=== PATIENT | male | born 1960 | race African-American/Black ===

== ENCOUNTER → 2017-10-23 | Outpatient (CLI) | payer BC ==
[~2017-10-23] MED LIST: DOBUTamine DRIP for NUC MED 500 MG in DEXTROSE/WATER 1 250ML.BAG IV ONE
--- NOTE | 2017-10-23 12:24 | ECHOS ---
STRESS ECHOCARDIOGRAM DOBUTAMINE STRESS ECHOCARDIOGRAM DATE OF SERVICE: 10/23/2017 INDICATION OF THE STUDY: Chest pain. MEDICATIONS: BASELINE HEART RATE: 68 BASELINE BLOOD PRESSURE: 133/88 MAXIMUM HEART RATE: 140 MAXIMUM BLOOD PRESSURE: 206/89 85% MPHR: 139 100% MPHR: 163 METS: MAXIMUM STAGE REACHED: TOTAL EXERCISE TIME: CLINICAL INFORMATION: STRESS DATA: Pretesting physical examination showed a heart rate of 68, pressure is 133/88 mmHg. Baseline EKG showed sinus mechanism. Dobutamine infusion at a dose of 10 mcg/kg per minute was initiated and increased to 30 mcg/kg per minute per protocol. Max heart rate was 140 beats per minute, which is about 85% of maximum predicted heart rate. Maximum blood pressure 206/89 mmHg. Clinically the patient did not have any symptoms of chest pain or chest discomfort. The EKG itself did not show any significant ST or T-wave abnormalities consistent with ischemia. ECHOCARDIOGRAM IMAGES: On echocardiogram images from parasternal long axis view, parasternal short axis view, apical 4 chamber and apical 2 chamber view were obtained as the baseline images, at low dose dobutamine infusion, at the peak of the heart rate as well as on recovery. On reviewing the echocardiogram images, did not show any evidence of obvious wall motion abnormalities consistent with ischemia. CONCLUSION: 1. Normal EKG in response to dobutamine. 2. Normal echocardiogram in response to dobutamine. MMODL / IJN: [id number] /
== END | disposition home or self-care (01) ==
LOC: RADNMMAIN 10:06
PROVIDERS: ATTEND Internal Medicine
DX: I10 Essential (primary) hypertension (principal); R07.9 Chest pain, unspecified
CPT/HCPCS: 93351; J1250

== ENCOUNTER → 2018-11-06 | Outpatient (CLI) | payer BC ==
[2018-11-06 13:46] LABS: Basophils % (A) 1 %; Eosinophils # (A) 0.1 k/uL (0-0.7); Eosinophils % (A) 2 %; HCT 46.1 % (39.0-53.0); HGB 14.9 gm/dL (13.0-17.5); Lymphocytes # (A) 1.8 k/uL (1.0-4.8); Lymphocytes % (A) 27 %; MCHC 32.3 g/dL (31.0-37.0); MCV 89.8 fL (80.0-100.0); Mean Platelet Volume 7.1; Monocytes # (A) 0.4 k/uL (0-1.0); Monocytes % (A) 6 %; Neutrophils % (A) 62 %; Platelet Count 309 k/uL (150-450); RBC 5.13 m/uL (4.30-5.90); RDW 14.1 % (11.5-15.5); WBC 6.5 k/uL (3.8-10.6)
[2018-11-06 14:45] LABS: Erythrocyte Sedimentation Rate 7 mm/hr (0-15)
[2018-11-06 15:01] LABS: Appearance,BF Cloudy; Color,BF Yellow; Nucleated Cells, Body Fluid 580 /uL; RBC, Body Fluid 780 /uL
[2018-11-06 15:04] LABS: Mononuclear WBC,Body Fluid 44 %; Polynuclear WBC,Body Fluid 56 %; Total Cells Counted,Body Fluid 100
== END | disposition home or self-care (01) ==
LOC: LABWHC1 12:19 → EDSTATUS 12:36
PROVIDERS: ATTEND Nurse Practitioner
DX: M25.561 Pain in right knee (principal); M25.461 Effusion, right knee; I10 Essential (primary) hypertension; Z85.46 Personal history of malignant neoplasm of prostate; Z96.651 Presence of right artificial knee joint
CPT/HCPCS: 36415; 85025; 85652; 87070; 87075; 87205; 89050; 89060

== ENCOUNTER → 2018-12-25 | Outpatient (CLI) | payer BC ==
--- NOTE | 2018-12-26 07:24 | NM ---
EXAMINATION TYPE: NM bone/joint limited DATE OF EXAM: 12/25/2018 COMPARISON: NONE HISTORY: Right knee pain TECHNIQUE: After the intravenous administration of 25.5 mCi Tc 99m MDP. Images acquired 6 hours pos t injection. Multiple views of the bilateral knees are submitted. 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 Comp arison to the prior exam of 12/20/2014 there is increased focal uptake of the right tibial plateau and medial femoral condyle, however the condylar uptake is similar to the contralateral left side. Remai nder of the uptake is symmetric, likely degenerative. IMPRESSION: Asymmetric uptake of the right tibial plateau, although overall mild, this may correlate with septic or aseptic loosening. Correlate with radiographs and clinical findings.
== END | disposition home or self-care (01) ==
LOC: RADNMMAIN 10:13
PROVIDERS: ATTEND Orthopaedic Surgery
DX: R93.7 Abnormal findings on diagnostic imaging of other parts of musculoskeletal system (principal); M25.561 Pain in right knee; M25.461 Effusion, right knee; Z96.651 Presence of right artificial knee joint
CPT/HCPCS: 78300; A9503

== ENCOUNTER → 2019-03-12 | Outpatient (CLI) | payer BC ==
--- NOTE | 2019-03-12 14:46 | XR ---
EXAMINATION TYPE: XR chest 2V DATE OF EXAM: 03/12/2019 COMPARISON: 04/17/2016 HISTORY: J 18.9. Shortness of breath. TECHNIQUE: Frontal and lateral views of the chest are obtained. FINDINGS: Chronic right minimal linear right basilar atelectasis. Cardiomediastinal silhouette is pa rtially obscured but similar to the prior. No sizable pneumothorax. Hemidiaphragm elevation is seen. Blunting of the costophrenic angles on the frontal view does not persist on the lateral view and appe ars to relate to partial obscuration by copious overlying soft tissues. Minimal degenerative changes of the spine. IMPRESSION: Chronic right hemidiaphragm elevation and mild subsegmental right basilar atelectasis.
== END | disposition home or self-care (01) ==
LOC: RADXRMAIN 11:06
PROVIDERS: ATTEND Internal Medicine
DX: J98.11 Atelectasis (principal); J98.4 Other disorders of lung
CPT/HCPCS: 71046

== ENCOUNTER 2019-04-24 10:12 | Day surgery (SDC) | payer BC ==
[2019-04-22 11:58] VITALS: BMI 31.6
[~2019-04-24 10:12] MED LIST changes: +DEXAMETHASONE SOD PHOSPHATE 10 MG/ML 1 ML VIAL IV ONE; -DOBUTamine DRIP for NUC MED 500 MG in DEXTROSE/WATER 1 250ML.BAG IV ONE; +LACTATED RINGERS 1,000 ML IV SCH; +ONDANSETRON 4 MG/2 ML VIAL IVP ONE
[2019-04-24] MEDS ORDERED: LIDOCAINE 1% 20 ML VIAL (10MG/ML) FOR IV START INTRADERMA ONE (11:07)
[2019-04-24 11:09] VITALS: TEMP 98.7
[2019-04-24] MEDS ORDERED: PROPOFOL 10 MG/ML 20 ML VIAL IV ONE (11:27)
--- NOTE | 2019-04-24 11:41 | P.PCN ---
Date of Procedure: 04/24/19 Procedure(s) Performed: BRIEF HISTORY: Patient is a 58-year-old pleasant male scheduled for an elective colonoscopy as a part of screening for colorectal neoplasia. PROCEDURE PERFORMED: Colonoscopy. PREOPERATIVE DIAGNOSIS: Screening for colon cancer. IV sedation per Anesthesia. PROCEDURE: After informed consent was obtained, the patient, was brought into the endoscopy unit. IV sedation was administered by Anesthesia under continuous monitoring. Digital rectal examination was normal. Initially the Olympus CF-160 flexible video colonoscope was then inserted in the rectum, gradually advanced into the cecum without any difficulty. Careful examination was performed as the scope was gradually being withdrawn. Ileocecal valve and the appendiceal orifice were visualized and appeared normal. Prep was excellent. Mucosa of the cecum, ascending colon, transverse colon, descending colon, sigmoid colon, and rectum appeared normal. Retroflexion was performed in the rectum and no lesions were seen. The patient tolerated the procedure well. IMPRESSION: Normal-appearing colon from rectum to cecum with no evidence of colorectal neoplasia . RECOMMENDATIONS: Findings of this examination were discussed with the patient as well as his family. He was advised to have a repeat screening colonoscopy in 10 years.
[2019-04-24 11:53] VITALS: BP 112/70
[2019-04-24 12:04] VITALS: PULSE 71; RESP 16
== END 2019-04-24 12:27 | disposition home or self-care (01) ==
LOC: ORWHC2ENDO 10:12
PROVIDERS: ATTEND Internal Medicine Gastroenterology
DX: Z12.11 Encounter for screening for malignant neoplasm of colon (principal); Z79.899 Other long term (current) drug therapy; I10 Essential (primary) hypertension; K21.9 Gastro-esophageal reflux disease without esophagitis; Z85.46 Personal history of malignant neoplasm of prostate; Z79.891 Long term (current) use of opiate analgesic
CPT/HCPCS: J2704; G0121

== ENCOUNTER → 2020-04-21 | Outpatient (CLI) | payer BC ==
[2020-04-21 10:40] LABS: HGB 14.1 gm/dL (13.0-17.5); MCH 29.8 pg (25.0-35.0); MCHC 32.9 g/dL (31.0-37.0); MCV 90.5 fL (80.0-100.0); Mean Platelet Volume 6.8; Platelet Count 256 k/uL (150-450); RBC 4.75 m/uL (4.30-5.90); RDW 14.2 % (11.5-15.5); WBC 4.3 k/uL (3.8-10.6)
[2020-04-21 10:43] LABS: Appearance,Urine Clear (Clear); Bilirubin,Urine Negative (Negative); Blood,Urine Negative (Negative); Color,Urine Yellow; Glucose,Urine (UA) Negative (Negative); Ketones,Urine Negative (Negative); Leukocyte Esterase,Urine Negative (Negative); Nitrite,Urine Negative (Negative); PH, Urine 5.5 (5.0-8.0); Protein,Urine Negative (Negative); Specific Gravity,Urine 1.017 (1.001-1.035); Urobilinogen,Urine <2.0 mg/dL (<2.0)
[2020-04-21 10:55] LABS: ALT 39 U/L (4-49); AST 36 U/L (17-59); African American GFR (CKD) >90 (>60 ml/min/1.73 sqM); Albumin 4.3 g/dL (3.5-5.0); Alkaline Phosphatase 48 U/L (38-126); Anion Gap 6 mmol/L; Blood Urea Nitrogen 13 mg/dL (9-20); Calcium 9.4 mg/dL (8.4-10.2); Carbon Dioxide 28 mmol/L (22-30); Chloride 104 mmol/L (98-107); Glucose 109 mg/dL (74-99); Non-African American GFR(CKD) 84 (>60 ml/min/1.73 sqM); Potassium 3.9 mmol/L (3.5-5.1); Sodium 138 mmol/L (137-145); Total Bilirubin 0.4 mg/dL (0.2-1.3); Total Protein 7.3 g/dL (6.3-8.2)
[2020-04-21 11:32] LABS: Partial Thromboplastin Time 27.2 sec (22.0-30.0); Prothrombin Time 10.3 sec (9.0-12.0)
== END | disposition home or self-care (01) ==
LOC: LABPAT 09:34
PROVIDERS: ATTEND Orthopaedic Surgery
DX: Z01.818 Encounter for other preprocedural examination (principal); Z01.812 Encounter for preprocedural laboratory examination
CPT/HCPCS: 36415; 80053; 81003; 85027; 85610; 85730; 87070

== ENCOUNTER → 2020-08-05 | Outpatient (CLI) | payer BC ==
[2020-08-05 14:50] LABS: HGB 14.6 gm/dL (13.0-17.5); MCH 30.7 pg (25.0-35.0); MCV 90.2 fL (80.0-100.0); Mean Platelet Volume 6.8; Platelet Count 217 k/uL (150-450); RBC 4.77 m/uL (4.30-5.90); RDW 13.6 % (11.5-15.5); WBC 4.9 k/uL (3.8-10.6)
[2020-08-05 14:55] LABS: INR 0.9 (<1.2); Partial Thromboplastin Time 25.6 sec (22.0-30.0); Prothrombin Time 10.1 sec (9.0-12.0)
[2020-08-05 15:01] LABS: ALT 24 U/L (4-49); AST 33 U/L (17-59); African American GFR (CKD) >90 (>60 ml/min/1.73 sqM); Albumin 4.5 g/dL (3.5-5.0); Alkaline Phosphatase 55 U/L (38-126); Anion Gap 10 mmol/L; Blood Urea Nitrogen 15 mg/dL (9-20); Calcium 9.7 mg/dL (8.4-10.2); Carbon Dioxide 30 mmol/L (22-30); Chloride 100 mmol/L (98-107); Glucose 106 mg/dL (74-99); Non-African American GFR(CKD) 82 (>60 ml/min/1.73 sqM); Potassium 3.5 mmol/L (3.5-5.1); Sodium 140 mmol/L (137-145); Total Bilirubin 0.5 mg/dL (0.2-1.3); Total Protein 7.6 g/dL (6.3-8.2)
[2020-08-05 15:09] LABS: Appearance,Urine Clear (Clear); Bilirubin,Urine Negative (Negative); Blood,Urine Trace (Negative); Color,Urine Light Yellow; Glucose,Urine (UA) Negative (Negative); Ketones,Urine Negative (Negative); Leukocyte Esterase,Urine Negative (Negative); Mucus,Urine Rare /hpf; Nitrite,Urine Negative (Negative); Protein,Urine Negative (Negative); RBC,Urine 2 /hpf (0-5); Specific Gravity,Urine 1.015 (1.001-1.035); Urobilinogen,Urine <2.0 mg/dL (<2.0); WBC,Urine 1 /hpf (0-5)
== END | disposition home or self-care (01) ==
LOC: LABPAT 14:01
PROVIDERS: ATTEND Orthopaedic Surgery
DX: Z01.812 Encounter for preprocedural laboratory examination (principal); M17.11 Unilateral primary osteoarthritis, right knee
CPT/HCPCS: 80053; 81001; 85027; 85610; 85730; 87070

== ENCOUNTER 2020-08-16 07:17 | Inpatient (IN) | payer BC ==
[2020-08-09 15:03] VITALS: BMI 31.1
[~2020-08-16 07:17] MED LIST changes: +ACETAMINOPHEN TAB 500 MG TAB PO PRN; -DEXAMETHASONE SOD PHOSPHATE 10 MG/ML 1 ML VIAL IV ONE; +DEXAMETHASONE SOD PHOSPHATE 4 MG/ML 1 ML VIAL IV ONE; +GABAPENTIN 300 MG CAP PO PRN; +HYDROmorphone 0.5 MG/0.5 ML SYRINGE IVP PRN; -LACTATED RINGERS 1,000 ML IV SCH; +MELOXICAM 7.5 MG TAB PO PRN; +MIDAZOLAM 2 MG/2 ML VIAL IV PRN; +ROPIVACAINE/EPI/CLONIDINE/KET 50 ML SYRINGE MISCELLANE PRN; +SCOPOLAMINE 1.5MG/72HR PATCH TRANSDERM ONE; +TRANEXAMIC ACID 1,000 MG in SODIUM CHLORIDE 0.9% 100 ML IVPB PRN
[2020-08-16] MEDS ORDERED: MIDAZOLAM 2 MG/2 ML VIAL IV ONE (08:44)
[2020-08-16] MEDS ORDERED: fentaNYL (PF) 50 MCG/ML 2 ML AMP IV ONE (08:44)
[2020-08-16] MEDS: LACTATED RINGERS 1,000 ML IV SCH ×2 (09:10→13:10)
[2020-08-16] MEDS ORDERED: KETAMINE 10 MG/ML 20 ML VIAL ONE (09:12)
[2020-08-16] MEDS ORDERED: TRANEXAMIC ACID 1,000 MG/10 ML VIAL ONE (09:12)
[2020-08-16] MEDS ORDERED: MIDAZOLAM 2 MG/2 ML VIAL ONE (09:12)
[2020-08-16] MEDS ORDERED: fentaNYL (PF) 50 MCG/ML 2 ML AMP ONE (09:12)
[2020-08-16] MEDS ORDERED: GLYCOPYRROLATE 0.2 MG/ML 2 ML VIAL ONE (09:12)
[2020-08-16] MEDS ORDERED: PROPOFOL 10 MG/ML 20 ML VIAL IV ONE (09:12)
[2020-08-16] MEDS ORDERED: SODIUM CHLORIDE 0.9% 100 ML BAG ONE (09:12)
[2020-08-16] MEDS ORDERED: IV FLUID CONTINUATION 1,000 ML IV ONE (09:18)
--- NOTE | 2020-08-16 09:31 | P.ANPRN ---
Procedure Note - Anesthesia - Nerve Block Performed Right Adductor Canal Infusion Time Out Performed: Yes (833) Date of Procedure: 08/16/20 Procedure Start Time: 08:34 Procedure Stop Time: 08:39 Location of Patient: PreOp Indication: Acute Post-Operative Pain, Requested by Surgeon Specifically requested for management of pain by : Benitez Gunderson Sedation Type: Sedate with meaningful contact maintained Preparation: Sterile Prep Position: Supine Catheter Depth at Skin (cm): 10 Catheter: Indwelling Needle Types: Pajunk Needle Gauge: 21 Ultrasound used to visualize needle placement: Yes Ultrasound used to observe medication spread: Yes Injectate: 0.5% Ropivacaine (see comment for volume) (20cc) Blood Aspirated: No Pain Paresthesia on Injection Noted: No Resistance on Injection: Normal Image Stored and Saved: Yes Events: Uneventful and Well Tolerated Right iPack Single Time Out Performed: Yes (833) Date of Procedure: 08/16/20 Procedure Start Time: 08:40 Procedure Stop Time: 08:43 Location of Patient: PreOp Indication: Acute Post-Operative Pain, Requested by Surgeon Specifically requested for management of pain by DrFernando: Benitez Gunderson Sedation Type: Sedate with meaningful contact maintained Preparation: Sterile Prep Position: Supine Catheter: None Needle Types: Pajunk Needle Gauge: 21 Ultrasound used to visualize needle placement: Yes Ultrasound used to observe medication spread: Yes Injectate: 0.5% Ropivacaine (see comment for volume) (10cc + Nacl 10CC PF) Blood Aspirated: No Pain Paresthesia on Injection Noted: No Resistance on Injection: Normal Image Stored and Saved: Yes Events: Uneventful and Well Tolerated
[2020-08-16] MEDS ORDERED: ceFAZolin 3,000 MG in SODIUM CHLORIDE 0.9% IRRIGATIO 3,000 ML IRRIGATION ONE (09:51)
[2020-08-16] MEDS ORDERED: LACTATED RINGERS 1,000 ML IV ONE (11:04)
--- NOTE | 2020-08-16 11:22 | P.OP ---
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 Anesthesia: spinal Surgeon: Benitez Gunderson Brewmaster #1: Sol Bowman Estimated Blood Loss (ml): 100 Pathology: other (Cultures 2) Condition: stable Disposition: PACU Indications for Procedure: This is a 59-year-old gentleman that has had a right total knee arthroplasty performed May 2014. He subsequently has continuous pain and swelling of his right knee. X-rays and imaging studies confirm loosening of the tibial component. After discussing the surgical and nonsurgical treatment options with him at length, he wishes to proceed with a revision of his right total knee arthroplasty. Informed consent was obtained. Operative Findings: The operative findings are consistent with loosening of the right femoral component. Description of Procedure: Patient was seen in the preoperative area consent was reviewed and operative site was marked with a skin marker. An adductor canal pain catheter was placed by anesthesia in the preoperative area. Patient was then brought to the operating room and given preoperative antibiotics intravenously. A spinal anesthetic was administered by the anesthesia department. A tourniquet was placed on the upper thigh and the lower extremity was prepped and draped in usual sterile fashion. A gram of transexamic acid was given. A universal timeout was then performed which confirmed the patient's name, surgical site, ALLERGIES, and consent. The lower extremity was then exsanguinated and tourniquet was inflated to 250 mmHg. A standard and anterior midline approach to the knee was performed. The skin and subcutaneous tissue was dissected down to the patellar tendon, with the prior incision excised. A medial parapatellar arthrotomy was then performed. Large amount of clear yellow fluid was encountered. The knee was then extended, the patellar was everted, and the knee was again flexed. The knee was then cultured 2. The prosthesis was then evaluated and the tibial component was found to be well fixed. The femoral component was then evaluated and found to be grossly loose. Using a small oscillating saw, the cement implant interface was disrupted and the femoral and tibial components were then removed without difficulty. Next, sequential reaming of the femoral canal was then performed by hand. The femur was then sized and the distal cutting block was then placed in the distal femur was then freshened with a cut. Next the 4-in-1 cutting block was then placed, and set for the appropriate rotation. Anterior posterior chamfer cuts were then performed as well as anterior posterior cuts. The trial femur was then placed with appropriate length stem. Next the box cutting guide was placed in the bone for the box was then reamed and removed. Femoral trial was then removed. Attention was then directed to the tibia. Sequential reaming of the tibial canal was then performed with appropriate size. The intramedullary tibial cutting guide was then placed the tibia was then freshened with a minimal resection. The tibia was then sized and the canal was prepared for the stem. The tibial trial was then placed and found to have a good fit. The femoral trial was then placed as well. Next, the insert trials were then sequentially used until the appropriate-sized insert was reached. Knee was able to fully extend and flex to 120 and was stable to varus and valgus and anterior posterior stresses throughout all range of motion. Trials were then removed. The cut surfaces of bone were then irrigated with pulsatile lavage. The posterior structures were injected with the ropivacaine solution. The knee was also irrigated with Irrisept solution. The components were then opened, the cement was mixed, and the components were then cemented in place. The cement was allowed to harden with the knee in full extension. While the cement was hardening, the remaining soft tissues were then injected with a ropivacaine solution, which consisted of 246.25 mg of ropivacaine, 0.5 mg of epinephrine, 30 mg of Toradol, 80 g of clonidine, and 48.45 mL of sterile water, for a total of 100 mL of fluid injected. After the cemented hardened. The tourniquet was released, and hemostasis was obtained. A second gram of transexamic acid was given. The knee was again irrigated. The knee was again taken through range of motion and found to be stable throughout all range of motion of 0-130, and the patella tracked normally. The fascia was then closed with #2 strata fix suture. The subcutaneous tissue was closed with 3-0 Vicryl and 3-0 strata fix. Exofin glue was used for the skin and placed with the knee in flexion. The patient was placed in a sterile silver dressing. Patient was then transferred to recovery room in stable condition. The phlebotomist lab assistant OLIMPIA Dumont was required due the complexity surgery and the need for a skilled instructor adjunct surgical technician. She assisted in positioning, draping, retraction, and closure of the wound.
[2020-08-16] MEDS ORDERED: hydrOXYzine pamoate 25 MG CAP PO PRN (11:56)
[2020-08-16] MEDS ORDERED: ONDANSETRON 4 MG/2 ML VIAL IVP PRN (11:56)
[2020-08-16] MEDS ORDERED: diazePAM 5 MG TAB PO PRN (11:56)
[2020-08-16] MEDS ORDERED: HYDROmorphone 0.2 MG/1 ML SYRINGE IVP PRN (11:56)
[2020-08-16] MEDS ORDERED: NA PHOS,M-B/NA PHOS,DI-BA 133 ML ENEMA RECTAL PRN (11:56)
[2020-08-16] MEDS ORDERED: NALOXONE 0.4 MG/ML 1 ML VIAL IV PRN (11:56)
[2020-08-16] MEDS ORDERED: MAGNESIUM HYDROXIDE 2,400 MG/10 ML CUP PO PRN (11:56)
[2020-08-16] MEDS ORDERED: bisacodyL 10 MG SUPP RECTAL PRN (11:56)
[2020-08-16] MEDS ORDERED: HYDROmorphone 0.5 MG/0.5 ML SYRINGE IVP PRN (11:56)
[2020-08-16] MEDS ORDERED: HYDROmorphone 1 MG/ML 1 ML SYRINGE IVP PRN (11:56)
[2020-08-16] MEDS ORDERED: HYDROcodone/APAP 7.5-325MG 1 EACH TAB PO PRN (11:58)
--- NOTE | 2020-08-16 12:27 | XR ---
EXAMINATION TYPE: XR knee limited RT DATE OF EXAM: 08/16/2020 COMPARISON: 12/26/2011 HISTORY: 59-year-old male postoperative evaluation TECHNIQUE: 2 views FINDINGS: Images show revision right total knee arthroplasty with short stemmed components. Punctate radiodense debris is interposed within the anterior knee joint likely on a postsurgical basis. Alignment grossl y anatomic. Anterior soft tissue swelling with scattered soft tissue air as well as intra-articular a ir relating to recent operation. IMPRESSION: Postoperative changes of revision right total knee arthroplasty with stemmed components. No evident c omplication.
[2020-08-16] MEDS ORDERED: ROPIVACAINE 0.2%-NS ON-Q PUMP 1,090 MG, EMPTY PAIN BALL 1 EACH MISCELLANE PRN (12:42)
[2020-08-16] MEDS: SODIUM CHLORIDE 0.9% 1,000 ML IV SCH (13:13)
[2020-08-16] MEDS: HYDROcodone/APAP 7.5-325MG 1 EACH TAB PO PRN ×2 (13:17→20:30)
[2020-08-16] MEDS ORDERED: traMADol 50 MG TAB PO PRN (14:18)
--- NOTE | 2020-08-16 14:19 | P.CONS ---
History of Present Illness - Reason for Consult Consult date: 08/16/20 medical management Requesting physician: Dayo Gunderson - Chief Complaint Medical Management s/p R TKA revision - History of Present Illness 59 year old man with history of HTN, OA with hx of R/L TKA presented for elective R TKA repair. Pt is doing well s/p OR, and medicine was consulted by orthopedic surgery service for medical management. Pt has no complaints at this time, and tells me his pain is well controlled. He denies n/v/c/d, f/c, cp, abd pain, dyspnea, palps, LE edema, numbness/weakness. Review of Systems All Systems reviewed and pertinent positives and negatives noted in HPI, all other symptoms are negative Past Medical History Past Medical History: Cancer, Hypertension, Osteoarthritis (OA) Additional Past Medical History / Comment(s): 04-17-16 fx lt tib/fib , arthritis,djd, hx prostate cancer History of Any Multi-Drug Resistant Organisms: MRSA Year Discovered:: 12/02/2008 MDRO Source:: left knee Past Surgical History: Joint Replacement, Orthopedic Surgery, Prostate Surgery Additional Past Surgical History / Comment(s): rupal knee replacement, rupal knee arthroscopic, rt shoulder rotator cuffx2, MRSA 2008 after left knee scope,prostatectomy Past Anesthesia/Blood Transfusion Reactions: Previous Problems w/ Anesthesia Additional Past Anesthesia/Blood Transfusion Reaction / Comm: "diff waking up",no hx blood transfusion Smoking Status: Never smoker - Past Family History Mother Family Medical History: Congestive Heart Failure (CHF), Diabetes Mellitus Father Family Medical History: Cancer Additional Family Medical History / Comment(s): prostate cancer Medications and Allergies Home Medications Medication Instructions Recorded Confirmed Type Valsartan/Hydrochlorothiazide 1 tab PO QAM 05/19/14 08/16/20 History [Valsartan-Hctz 160-25 mg Tab] amLODIPine [Norvasc] 5 mg PO BID 05/19/14 08/16/20 History Omeprazole [PriLOSEC] 20 mg PO QAM 04/22/19 08/16/20 History traMADol HCL [Ultram] 50 mg PO Q6HR PRN 04/22/19 08/16/20 History Potassium Chloride [Klor-Con 20] 20 meq PO BID 08/09/20 08/16/20 History Aspirin 325 mg PO BID #60 tab 08/16/20 Rx HYDROcodone/APAP 7.5-325MG [[place] 1 - 2 tab PO Q6H PRN #32 tab 08/16/20 Rx 7.5-325] Sennosides [Senokot] 2 tab PO DAILY PRN #60 tablet 08/16/20 Rx Allergies Allergy/AdvReac Type Severity Reaction Status Date / Time No Known Allergies Allergy Verified 08/16/20 08:10 Physical Exam Osteopathic Statement: *. No significant issues noted on an osteopathic structural exam other than those noted in the History and Physical/Consult. Vitals: Vital Signs Temp Pulse Pulse Resp BP BP Pulse Ox 08/16/20 12:40 71 16 104/66 96 08/16/20 12:25 71 18 108/65 96 08/16/20 12:10 63 16 119/68 97 08/16/20 11:55 97.2 F L 68 12 118/67 98 08/16/20 09:08 57 L 18 125/77 97 08/16/20 09:05 97.8 F 69 18 133/84 97 Intake and Output 08/15/20 08/16/20 08/16/20 22:59 06:59 14:59 Intake Total 1351 Output Total 100 Balance 1251 Intake: IV 1351 Output: Estimated Blood Loss 100 Other: Weight 118.4 kg Gen: awake, alert HEENT: normocephalic, atraumatic, good hearing acuity, moist mucous membranes Resp: good air exchange, breathing comfortably with no accessory muscle use, clear to auscultation bilaterally without wheezes CVS: good distal perfusion x 4, regular rate and rhythm without murmurs GI: soft, NTTP, ND, normal bowel sounds : no SPT, no CVAT, joel catheter not present MSK: no pitting edema, no clubbing Neuro: non-focal, moving all extremities Psych: cooperative, euthymic mood Assessment and Plan Assessment: 1. Hypertension 2. Osteoarthritis 3. History of left TKA 4. Status post right TKA revision next 59-year-old man a medical history of osteoarthritis, hypertension, right and left TKA presented after right TKA had hardware loosening prompting revision surgery. Medicine consulted by with [facility] for medical management. Next Plan: - continue home medications for BP - pain control per anesthesia/primary: valium PRN + onQ pump + [place] PRN + dilaudid PRN - supportive care - PT/OT Medically cleared for discharge when appropriate per primary team Full Code
[2020-08-16] MEDS: amLODIPine 5 MG TAB PO SCH (20:31)
[2020-08-16] MEDS: ASPIRIN 325 MG TAB PO SCH (20:31)
[2020-08-16] MEDS ORDERED: SENNOSIDES-DOCUSATE SODIUM 1 EACH TAB PO SCH (21:00)
[2020-08-17] MEDS: HYDROcodone/APAP 7.5-325MG 1 EACH TAB PO PRN (02:47)
[2020-08-17] MEDS: SODIUM CHLORIDE 0.9% 1,000 ML IV SCH (03:50)
[2020-08-17] MEDS: LACTATED RINGERS 1,000 ML IV SCH (03:52)
[2020-08-17 07:50] VITALS: BP 128/74; PULSE 70; RESP 16; TEMP 97.7
[2020-08-17] MEDS: amLODIPine 5 MG TAB PO SCH (08:26)
[2020-08-17] MEDS: ASPIRIN 325 MG TAB PO SCH (08:27)
[2020-08-17] MEDS ORDERED: MELOXICAM 7.5 MG TAB PO SCH (09:00)
[2020-08-17] MEDS ORDERED: VALSARTAN 160 MG TAB PO SCH (09:00)
[2020-08-17] MEDS ORDERED: NON FORMULARY DRUG (Valsartan/Hydrochlorothiazide [Valsartan-Hctz 160-25 Mg Tab] 1 EACH Ta PO SCH (09:00)
[2020-08-17] MEDS ORDERED: PANTOPRAZOLE 40 MG TABLET PO SCH (09:00)
[2020-08-17] MEDS ORDERED: hydroCHLOROthiazide 25 MG TAB PO SCH (09:00)
[2020-08-17 09:06] LABS: Basophils # (A) 0.01 X 10*3/uL (0.00-0.10); Basophils % (A) 0.1 %; Eosinophils # (A) 0.01 X 10*3/uL (0.04-0.35); Eosinophils % (A) 0.1 %; HCT 35.9 % (39.6-50.0); HGB 12.1 g/dL (13.0-17.0); Lymphocytes # (A) 1.48 X 10*3/uL (0.90-5.00); Lymphocytes % (A) 18.2 %; MCH 30.6 pg (27.0-32.0); MCHC 33.7 g/dL (32.0-37.0); MCV 90.7 fL (80.0-97.0); Mean Platelet Volume 9.9 fL (9.5-12.2); Monocytes # (A) 0.51 X 10*3/uL (0.20-1.00); Monocytes % (A) 6.3 %; Neutrophils # (A) 6.07 X 10*3/uL (1.80-7.70); Neutrophils % (A) 74.9 %; Platelet Count 244 X 10*3/uL (140-440); RBC 3.96 X 10*6/uL (4.40-5.60); RDW 13.3 % (11.5-14.5); WBC 8.11 X 10*3/uL (4.50-10.00)
--- NOTE | 2020-08-17 12:46 | P.PN ---
Subjective Progress Note Date: 08/17/20 No new complaints today. Pt is doing well with pain control, and ambulating on knee well. Plan is for dc home today. Objective - Vital Signs Vital signs: Vital Signs Temp 97.7 F 08/17/20 07:49 Pulse 70 08/17/20 07:49 Resp 16 08/17/20 07:49 BP 128/74 08/17/20 07:49 Pulse Ox 95 08/17/20 07:49 Intake & Output 08/16/20 08/17/20 08/17/20 18:59 06:59 18:59 Intake Total 1351 Output Total 300 475 Balance 1051 -475 Weight 118.4 kg Intake: IV 1351 Output: Urine 200 475 Estimated Blood Loss 100 Other: Voiding Method Urinal Toilet - Exam Gen: awake, alert HEENT: normocephalic, atraumatic, good hearing acuity, moist mucous membranes Resp: good air exchange, breathing comfortably with no accessory muscle use, clear to auscultation bilaterally without wheezes CVS: good distal perfusion x 4, regular rate and rhythm without murmurs GI: soft, NTTP, ND, normal bowel sounds : no SPT, no CVAT, joel catheter not present MSK: no pitting edema, no clubbing Neuro: non-focal, moving all extremities Psych: cooperative, euthymic mood - Labs CBC & Chem 7: 08/17/20 05:29 Labs: Abnormal Lab Results - Last 24 Hours (Table) 08/17/20 Range/Units 05:29 RBC 3.96 L (4.40-5.60) X 10*6/uL Hgb 12.1 L (13.0-17.0) g/dL Hct 35.9 L (39.6-50.0) % Eosinophils # 0.01 L (0.04-0.35) X 10*3/uL Microbiology - Last 24 Hours (Table) 08/16/20 09:49 Gram Stain - Preliminary Knee - Right Wound Culture - Preliminary 08/16/20 09:49 Gram Stain - Preliminary Knee - Right Wound Culture - Preliminary 08/16/20 09:49 Anaerobic Culture - Preliminary Knee - Right 08/16/20 09:49 Anaerobic Culture - Preliminary Knee - Right Assessment and Plan Assessment: 1. Hypertension 2. Osteoarthritis 3. History of left TKA 4. Status post right TKA revision next 59-year-old man a medical history of osteoarthritis, hypertension, right and left TKA presented after right TKA had hardware loosening prompting revision surgery. Medicine consulted by with [facility] for medical management. Next Plan: - continue home medications for BP - pain control per anesthesia/primary: valium PRN + onQ pump + [place] PRN + dilaudid PRN - supportive care - PT/OT Medically cleared for discharge when appropriate per primary team Full Code
--- NOTE | 2020-08-17 13:02 | P.DS ---
Providers Date of admission: 08/16/20 07:17 Expected date of discharge: 08/17/20 Attending physician: Benitez Gunderson Consults: 08/16/20 11:56 Consult Physician Routine Consulting Provider: Cody Padgett Consult Reason/Comments: medical management Do you want consulting provider notified?: Yes Primary care physician: Kelvin Fairbanks MD - Discharge Diagnosis(es) (1) Loosening of prosthesis of right total knee replacement Status: Acute (2) Status post revision of total replacement of right knee Status: Acute Hospital Course: This is a 59-year-old male who developed pain and loosening of his right total knee arthroplasty. The patient presented for evaluation as an outpatient. After discussion and consideration patient elects to proceed with revision right total knee arthroplasty. The patient is seen preoperatively by Dr. Gunderson and medically cleared for surgery by their primary care physician. Patient is admitted to [facility] on 08/16/2020 for revision right total knee arthroplasty. The procedure is performed without complication or sequelae. The patient is doing well postoperatively. Labs and vital signs are stable on day of discharge. On day of discharge patient's knee incision is healing well. There is minimal erythema. There is no drainage noted at this time. There is minimal soft tissue swelling to the knee. Patient has full foot and ankle motion without difficulty or pain. Calf is soft and nontender to palpation. Neurovascular status to the right lower extremity is intact. Patient is discharged home in good condition. Opioid start talking form is reviewed and signed. Please see med rec for accurate list of home medications. Plan - Discharge Summary Discharge Rx Participant: Yes New Discharge Prescriptions: New Aspirin 325 mg PO BID #60 tab HYDROcodone/APAP 7.5-325MG [[place] 7.5-325] 1 - 2 tab PO Q6H PRN #32 tab PRN Reason: Pain Sennosides [Senokot] 2 tab PO DAILY PRN #60 tablet PRN Reason: Constipation No Action amLODIPine [Norvasc] 5 mg PO BID Valsartan/Hydrochlorothiazide [Valsartan-Hctz 160-25 mg Tab] 1 tab PO QAM traMADol HCL [Ultram] 50 mg PO Q6HR PRN PRN Reason: Pain Omeprazole [PriLOSEC] 20 mg PO QAM Potassium Chloride [Klor-Con 20] 20 meq PO BID Discharge Medication List Valsartan/Hydrochlorothiazide [Valsartan-Hctz 160-25 mg Tab] 1 tab PO QAM 05/19/14 [History] amLODIPine [Norvasc] 5 mg PO BID 05/19/14 [History] Omeprazole [PriLOSEC] 20 mg PO QAM 04/22/19 [History] traMADol HCL [Ultram] 50 mg PO Q6HR PRN 04/22/19 [History] Potassium Chloride [Klor-Con 20] 20 meq PO BID 08/09/20 [History] Aspirin 325 mg PO BID #60 tab 08/16/20 [Rx] HYDROcodone/APAP 7.5-325MG [[place] 7.5-325] 1 - 2 tab PO Q6H PRN #32 tab 08/16/20 [Rx] Sennosides [Senokot] 2 tab PO DAILY PRN #60 tablet 08/16/20 [Rx] Follow up Appointment(s)/Referral(s): Kelvin Fairbanks MD [Primary Care Provider] - 08/26/20 3:45 pm [facility],Equipment [NON-STAFF] - (*Please call [facility] once home to arrange delivery of your Continous Passive Motion (CPM) machine) Benitez Gunderson DO [Doctor of Osteopathic Medicine] - 08/30/20 9:15 am Ambulatory/Diagnostic Orders: Continuous Passive Motion (CPM) Machine [DME.AMB1] Time Frame: 3 Weeks, Location: None Selected Ambulatory Physical Therapy Order [THER.AMB] Location: None Selected Patient Instructions/Handouts: Revision Total Joint Arthroplasty (DC), Continuous Passive Motion Machine (DC) Activity/Diet/Wound Care/Special Instructions: *Please call [facility] to set up outpatient physical therapy to start XIANG - [phone] Weightbearing as tolerated with a walker. CPM 5-6h daily as tolerated. Leave dressing intact. May be removed by home care nurse or by patient in 10 days. May shower with dressing on. Recommend use of compression stockings daily until follow up to help prevent swelling and blood clots. May remove at night before sleeping. Please take aspirin 325mg twice daily for 30 days to prevent blood clots. Please follow up with [facility] and call with any questions or concerns, . Discharge Disposition: HOME WITH HOME HEALTH SERVICES
--- NOTE | 2020-08-17 13:03 | P.PN ---
Progress Note - Text 08/17/20 652am 59-year-old male status post total knee replacement, patient has a On-Q pump for postop pain control with solution running at 8 mL an hour with a VAS of 5 patient is also being treated with oral [place] for pain control. Plan to continue On-Q pump infusion
== END 2020-08-17 11:28 | disposition home or self-care (01) | DRG 468 ==
LOC: 2ORMAIN 07:17 → EDSTATUS 09:05 → 4SSUR 12:01
PROVIDERS: ADMIT Orthopaedic Surgery; ATTEND Orthopaedic Surgery
PROC: 0SPC0JZ Removal of Synthetic Substitute from Right Knee Joint, Open Approach (ICD-10-PCS; principal; 2020-08-16 09:05)
PROC: 0SRC06A Replacement of Right Knee Joint with Oxidized Zirconium on Polyethylene Synthetic Substitute, Uncemented, Open Approach (ICD-10-PCS; principal; 2020-08-16 09:05)
DX: T84.032A Mechanical loosening of internal right knee prosthetic joint, initial encounter (principal); I10 Essential (primary) hypertension; M19.90 Unspecified osteoarthritis, unspecified site; Z79.82 Long term (current) use of aspirin; Z79.899 Other long term (current) drug therapy; Z96.652 Presence of left artificial knee joint; Z86.14 Personal history of Methicillin resistant Staphylococcus aureus infection; Z85.46 Personal history of malignant neoplasm of prostate; Z90.79 Acquired absence of other genital organ(s); Z87.81 Personal history of (healed) traumatic fracture; Y79.2 Prosthetic and other implants, materials and accessory orthopedic devices associated with adverse incidents; Z83.3 Family history of diabetes mellitus; Z82.49 Family history of ischemic heart disease and other diseases of the circulatory system; Z80.42 Family history of malignant neoplasm of prostate
CPT/HCPCS: 64447; 64448; 76942; 85025; 87070; 87075; 87205

== ENCOUNTER → 2021-07-11 | Outpatient (CLI) | payer BC ==
--- NOTE | 2021-07-11 15:38 | XR ---
EXAMINATION TYPE: XR hand limited RT DATE OF EXAM: 07/11/2021 COMPARISON: NONE HISTORY: 60-year-old male M79.89 HAND SWELLING TECHNIQUE: 2 views FINDINGS: Moderate degenerative change first CMC joint and second MCP joint. Moderate degenerative spurring at the second DIP joint. Prominent dorsal degenerative spurring is present at the second MCP joint. Mild to moderate first MCP and first IP joints. There is ronaldo widening at the scapholunate interval of 3 mm. No acute fracture, subluxation, or dislocation seen. IMPRESSION: 1. 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 Additional moderate osteoarthritic changes second DIP joint. 2. Ronaldo widening at the scapholunate interval of 3 mm compatible with age indeterminate disruption o f the scapholunate ligament.
== END | disposition home or self-care (01) ==
LOC: RADXRMAIN 12:56
PROVIDERS: ATTEND Internal Medicine
DX: M19.041 Primary osteoarthritis, right hand (principal); M18.11 Unilateral primary osteoarthritis of first carpometacarpal joint, right hand; M25.831 Other specified joint disorders, right wrist

== ENCOUNTER → 2021-11-08 | Outpatient (CLI) | payer BC ==
--- NOTE | 2021-11-08 15:43 | CT ---
EXAMINATION TYPE: CT abdomen pelvis wo con DATE OF EXAM: 11/08/2021 COMPARISON: No previous CT scan is available for comparison. HISTORY: R lower abdominal side pain x1 week CT DLP: 1244.20 mGycm Automated exposure control for dose reduction was used. TECHNIQUE: Helical acquisition of images was performed from the lung bases through the pelvis. FINDINGS: LUNG BASES: Elevated right hemidiaphragm with right basal subsegmental pulmonary atelectasis and víctor cent thin pleural calcification. Coronary arterial calcifications. Bilateral gynecomastia changes. LIVER/GB: No significant abnormality is appreciated. PANCREAS: No significant abnormality is seen. SPLEEN: No significant abnormality is seen. ADRENALS: No significant abnormality is seen. KIDNEYS: No significant abnormality is seen. FREE AIR: No free air is visualized RETROPERITONEAL ADENOPATHY: None visualized REPRODUCTIVE ORGANS: Suspected previous prostatic resection. URINARY BLADDER: Nondistended. PELVIC ADENOPATHY: No pathologically enlarged pelvic lymph nodes. OSSEOUS STRUCTURES: No gross aggressive bone lesion. BOWEL: Unremarkable stomach, duodenum and small bowel. Scattered uncomplicated colonic diverticulosi s. No evidence for acute diverticulitis. Normal appendix. OTHER: No sizable ascites. IMPRESSION: No definite acute abnormality seen in the abdomen or the pelvis. Incidental findings as described abo ve.
== END | disposition home or self-care (01) ==
LOC: RADCTMAIN 15:04
PROVIDERS: ATTEND Internal Medicine
DX: R10.31 Right lower quadrant pain (principal)
CPT/HCPCS: 74176

== ENCOUNTER → 2024-05-21 | Outpatient (CLI) | payer OTHER ==
--- NOTE | 2024-05-21 14:39 | US ---
EXAMINATION TYPE: US arterial LE single level DATE OF EXAM: 05/21/2024 1:26 PM COMPARISONS: None. CLINICAL INDICATION: Male, 63 years old with history of I73.9 CLAUDICATION; Claudication TECHNIQUE: Systolic pressures were taken of the upper and lower extremity arteries with ankle-brachia l indices and toe brachial indices calculated bilaterally. History of: Smoker: No Hypertension: Yes Diabetic: No Hyperlipidemia: Yes TIA/CVA: No Previous Vascular Surgery: No CAD: No HI: No Vascular Ulcers: No Claudication: No Gangrene: No FINDINGS: Doppler Waveforms: Right: Multiphasic Left: Multiphasic Brachial Artery systolic pressure: Right: 117 Left: 119 Posterior Tibial artery systolic pressure: Right: 150 Left: 142 Dorsalis Pedis artery systolic pressure: Right: 135 Left: 135 Toe artery systolic pressure: Not performed Ankle-Brachial Indices: Right: 1.26 Left: 1.19 (Vessel hardening > 1.4; Normal 0.9 - 1.4, Moderate 0.7 - 0.9, Severe 0.5-0.7) IMPRESSION: Normal ankle-brachial brachial indices bilaterally. [facility], , 05/21/2024 2:37 PM
== END | disposition home or self-care (01) ==
LOC: RADUSWWP 13:06
PROVIDERS: ATTEND Family Medicine
DX: I73.9 Peripheral vascular disease, unspecified (principal)
CPT/HCPCS: 93922